=== PATIENT | female | born 1985 | race Two or more races ===

== ENCOUNTER 2018-09-05 22:49 | Emergency (ER) | payer MEDICAID ==
[~2018-09-05] VITALS: Ht 162.6 cm; Wt 136.1 kg
[2018-09-06 00:10] LABS: Basophils # (auto) 0.1 uL; Basophils % (auto) 0.7 % (0.0-2.0); Eosinophils # (auto) 0.1 uL; Lymphocytes % (auto) 36.3 % (10.0-50.0); Monocytes # (auto) 0.5 uL; Neutrophils # (auto) 4.6 uL
[2018-09-06 00:12] LABS: Eosinophils % (auto) 0.8 % (0.0-7.0); Hematocrit 39.6 % (36.0-46.0); Lymphocytes # (auto) 2.9 uL; Mean Corpuscular Hemoglobin 26.2 pg (28.0-32.0); Mean Corpuscular Hgb Conc. 32.8 g/dL (32.0-36.0); Monocytes % (auto) 6.2 % (0.0-12.0); Platelet Count (auto) 271 10^3/uL (140-450); Red Blood Cells 4.95 10^6/uL (4.0-5.20); Red Cell Distribution Width 14.1 % (11.8-14.3); White Blood Cell 8.1 10^3/uL (4.4-10.8)
[2018-09-06 00:28] LABS: Albumin 3.6 g/dL (3.4-5.0); BUN/Creatinine Ratio 12.8; Calcium 8.6 mg/dL (8.5-10.1); INR 0.97 (0.9-1.15); Magnesium 1.8 mg/dL (1.6-2.6); Partial Thromboplastin Time 25.9 sec (23.64-32.05); Potassium 3.4 mmol/L (3.5-5.1); Prothrombin Time 10.5 sec (9.06-12.60)
[2018-09-06 00:31] LABS: Bilirubin, Total 0.3 mg/dL (0.2-1.0); Total Protein 7.1 g/dL (6.4-8.2)
[2018-09-06 05:06] LABS: Urine Bacteria FEW /hpf (None Seen); Urine Blood Negative /uL (Negative); Urine Specific Gravity 1.013 (1.001-1.035); Urine WBC 1 /hpf (0 - 5)
[2018-09-06] MEDS: cefTRIAXone 1GM/50ML D5W 50 ML IV ONE (05:58)
[2018-09-06 06:15] VITALS: BP 111/63
== END 2018-09-06 06:43 | disposition home or self-care (01) ==
LOC: ER 22:54
DX: N39.0 Urinary tract infection, site not specified (principal)
CPT/HCPCS: 36415; 80053; 81001; 81025; 82150; 83690; 83735; 85025; 85610; 85730; 96365; 99283; J0696